=== PATIENT | male | born 1960 | race Caucasian/White ===

== ENCOUNTER → 2019-06-16 | Outpatient (CLI) | payer MEDICARE ==
--- NOTE | 2019-06-23 09:07 | P.ARTDOP ---
Arterial Doppler LOWER EXTREMITY ARTERIAL DOPPLER: DATE OF SERVICE: 02/16/2020 Reason for study: Left calf ulcer. Doppler waveforms: Multiphasic at the right femoral. Atypical otherwise throughout.. Pulse volume recording: Blunted waveforms calf and below on the right and below the calf on the left with flat line and the left great toe. Pressure gradients: Above the low thigh on the right and lower leg on the left. Ankle-brachial indices: 0.74 on the right and 0.68 on the left. Toe pressures: 34 on the right, not measured on the left Impression: Moderate right fem-pop disease. At least moderate left femoral popliteal disease with possible mild iliac component. Clinical correlation recommended..
== END | disposition home or self-care (01) ==
LOC: RADUSWWP 13:35
PROVIDERS: ATTEND Thoracic Surgery (Cardiothoracic Vascular Surgery)
DX: E08.622 Diabetes mellitus due to underlying condition with other skin ulcer (principal); L97.222 Non-pressure chronic ulcer of left calf with fat layer exposed; F17.210 Nicotine dependence, cigarettes, uncomplicated
CPT/HCPCS: 93923